=== PATIENT | female | born 1960 | race Caucasian/White ===

== ENCOUNTER 2018-04-07 15:05 | Emergency (ER) | payer OTHER ==
[2018-04-07 17:40] LABS: ADD MAN DIFF? NO
[2018-04-07 17:41] LABS: BASOPHIL # 0.1 10^3/ul (0.0-0.1); BASOPHILS % 0.6 % (0.0-2.0); EOSINOPHILS # 0.2 10^3/ul (0.0-0.5); EOSINOPHILS % 1.6 % (0.0-7.0); HEMATOCRIT 38.5 % (37.0-47.0); HEMOGLOBIN 12.5 g/dl (12.0-16.0); LYMPHOCYTES # 3.2 10^3/ul (0.8-2.9); LYMPHOCYTES % 25.2 % (15.0-51.0); MEAN CORPUSCULAR HEMOGLOBIN 29.1 pg (29.0-33.0); MEAN CORPUSCULAR HGB CONC 32.5 g/dl (32.0-37.0); MEAN CORPUSCULAR VOLUME 89.7 fl (82.0-101.0); MEAN PLATELET VOLUME 10.1 fl (7.4-10.4); MONOCYTE # 0.9 10^3/ul (0.3-0.9); NEUTROPHIL # 8.2 10^3/ul (1.6-7.5); NEUTROPHILS % 65.2 % (39.0-77.0); PLATELET COUNT 345 10^3/UL (140-415); RED BLOOD COUNT 4.29 10^6/ul (4.20-5.40); RED CELL DISTRIBUTION WIDTH 13.6 % (11.5-14.5)
[2018-04-07 17:41] LABS: WHITE BLOOD COUNT 12.6 10^3/ul (4.8-10.8)
[2018-04-07 18:01] LABS: ANION GAP 13 (8-16); BLOOD UREA NITROGEN 19 mg/dl (7-20); CALCIUM 10.4 mg/dl (8.4-10.2); CARBON DIOXIDE 29 mmol/L (21-31); CHLORIDE 104 mmol/L (97-110); CREATININE 1.11 mg/dl (0.44-1.00); GLUCOSE 103 mg/dl (70-220); POTASSIUM 4.4 mmol/L (3.5-5.1); SODIUM 142 mmol/L (135-144)
[2018-04-07 18:11] LABS: TROPONIN-I < 0.010 ng/ml (0.000-0.120)
[2018-04-07] MEDS: KETOROLAC 15 MG INJ IV (18:44)
== END 2018-04-07 18:50 | disposition home or self-care (01) ==
LOC: E/R 15:05
DX: R07.89 Other chest pain (principal); I10 Essential (primary) hypertension
CPT/HCPCS: 36415; 71045; 80048; 84484; 85025; 93005; 96374; 99285-25